=== PATIENT | male | born 1945 | race Two or more races ===

== ENCOUNTER 2025-03-08 11:18 | Inpatient (IN) | payer OTHER ==
[~2025-03-08] VITALS: Ht 170.2 cm; Wt 83.5 kg
[2025-03-08] MEDS ORDERED: IRBESARTAN-HCT1 EACH PO (11:44)
[2025-03-14] MEDS ORDERED: METRONIDAZOLE/SODIUM CHLORIDE 500 MG/100 ML PIGGYBACK IV ONE ×2 (11:45→18:10)
[2025-03-14] MEDS ORDERED: CEFTRIAXONE SODIUM 2,000 MG VIAL ONE (11:45)
[2025-03-14] MEDS ORDERED: 0.9 % SODIUM CHLORIDE 1,000 ML IV SCH (16:00)
[2025-03-14] MEDS ORDERED: MORPHINE SULFATE 4 MG/ML CARTRIDGE IV PRN (16:00)
[2025-03-14] MEDS ORDERED: OxyCODONE HCL 5 MG TABLET (ROXICODONE) PO PRN (16:00)
[2025-03-14] MEDS ORDERED: DEXTROSE 50 % IN WATER 0.5 G/ML VIAL IV PRN (16:00)
[2025-03-14] MEDS ORDERED: ONDANSETRON HCL 2 MG/ML VIAL IV PRN (16:00)
[2025-03-14] MEDS ORDERED: MORPHINE SULFATE 4 MG/ML VIAL IV ONE ×2 (16:55→17:30)
[2025-03-14] MEDS ORDERED: HYOSCYAMINE SULFATE 0.125 MG TAB.SUBL SL SCH (17:00)
[2025-03-14] MEDS ORDERED: METRONIDAZOLE/SODIUM CHLORIDE 500 MG/100 ML PIGGYBACK IV SCH (17:00)
[2025-03-14] MEDS ORDERED: GABAPENTIN 300 MG CAPSULE PO SCH (17:00)
[2025-03-14] MEDS ORDERED: POLYETHYLENE GLYCOL 3350 17 GM BLIST.PACK PO SCH (17:00)
[2025-03-14] MEDS ORDERED: ENALAPRILAT DIHYDRATE 1.25 MG/ML VIAL IV PRN (17:45)
[2025-03-14 18:32] LABS: BASO % 0.2 % (0.1-1.2); EOS # 0.09 (0.04-0.54); EOS % 0.4 % (0.7-7.0); HEMATOCRIT 36.5 % (40.1-51.0); HEMOGLOBIN 11.9 g/dL (13.7-17.5); LYMPH # 1.45 (1.18-3.74); LYMPH % 7.2 % (19.3-53.1); MEAN CORPUSCULAR HEMOGLOBIN 28.7 pg (25.6-32.2); MONO # 1.22 (0.24-0.82); NEUT # 17.32 (1.56-6.13); NEUT % 85.7 % (34.0-71.1); PLATELET COUNT 168 K/uL (163-369); RED BLOOD COUNT 4.14 M/uL (4.63-6.08); RED CELL DISTRIBUTION WIDTH 14.5 % (11.6-14.4)
[2025-03-14 18:52] LABS: ALBUMIN 3.5 gm/dL (3.4-5.0); CALCIUM 8.6 mg/dL (8.5-10.1); CREATININE SERUM 1.16 mg/dL (0.70-1.30); GFR 61.05; PHOSPHOROUS 3.4 mg/dL (2.5-4.9); POTASSIUM 4.37 mEq/L (3.5-5.1)
[2025-03-14 19:22] VITALS: BP 124/61; O2SAT 92
[2025-03-14] MEDS ORDERED: ACETAMINOPHEN 500 MG GEL..CAP PO SCH (20:00)
[2025-03-14] MEDS ORDERED: CELECOXIB 200 MG CAPSULE PO SCH (21:00)
[2025-03-14] MEDS ORDERED: DOXAZOSIN MESYLATE 2 MG TABLET PO SCH (21:00)
[2025-03-14] MEDS ORDERED: FAMOTIDINE/PF 20 MG/2 ML VIAL IV PUSH SCH (21:00)
[2025-03-15] VITALS: BP 126/67; O2SAT 96
[2025-03-15 06:47] LABS: BASO % 0.3 % (0.1-1.2); EOS # 0.03 (0.04-0.54); EOS % 0.2 % (0.7-7.0); HEMATOCRIT 36.8 % (40.1-51.0); HEMOGLOBIN 12.2 g/dL (13.7-17.5); LYMPH # 1.44 (1.18-3.74); LYMPH % 10.2 % (19.3-53.1); MONO # 1.22 (0.24-0.82); MONO % 8.6 % (4.7-12.5); NEUT # 11.36 (1.56-6.13); NEUT % 80.3 % (34.0-71.1); PLATELET COUNT 159 K/uL (163-369); RED BLOOD COUNT 4.21 M/uL (4.63-6.08); RED CELL DISTRIBUTION WIDTH 14.3 % (11.6-14.4)
[2025-03-15 07:42] LABS: ALBUMIN 3.3 gm/dL (3.4-5.0); CALCIUM 8.4 mg/dL (8.5-10.1); CREATININE SERUM 1.09 mg/dL (0.70-1.30); GFR 65.6; MAGNESIUM 2.1 mg/dL (1.8-2.4); POTASSIUM 4.28 mEq/L (3.5-5.1)
[2025-03-15 08:00] VITALS: BP 109/62; O2SAT 97
[2025-03-15] MEDS ORDERED: HYDROCHLOROTHIAZIDE 12.5 MG CAPSULE PO SCH (09:00)
[2025-03-15] MEDS ORDERED: IRBESARTAN 300 MG TABLET PO SCH (09:00)
[2025-03-15] MEDS ORDERED: AMLODIPINE BESYLATE 2.5 MG TABLET PO SCH (09:00)
[2025-03-15] MEDS ORDERED: AMLODIPINE BESYLATE 5 MG TABLET PO SCH (09:00)
[2025-03-15] MEDS ORDERED: ENOXAPARIN SODIUM 40 MG/0.4 ML SYRINGE SUBCUTANEO SCH (17:00)
[2025-03-16 01:31] VITALS: BP 109/61; O2SAT 96
[2025-03-16 08:17] LABS: BASO % 0.2 % (0.1-1.2); EOS # 0.35 (0.04-0.54); EOS % 2.7 % (0.7-7.0); HEMATOCRIT 38.7 % (40.1-51.0); HEMOGLOBIN 12.7 g/dL (13.7-17.5); LYMPH % 8.4 % (19.3-53.1); MEAN CORPUSCULAR HEMOGLOBIN 28.9 pg (25.6-32.2); MONO # 0.86 (0.24-0.82); MONO % 6.6 % (4.7-12.5); NEUT # 10.67 (1.56-6.13); NEUT % 81.9 % (34.0-71.1); PLATELET COUNT 155 K/uL (163-369); RED CELL DISTRIBUTION WIDTH 14.3 % (11.6-14.4)
[2025-03-16] MEDS ORDERED: TRAM1TAB98 PO (08:17)
[2025-03-16] MEDS ORDERED: PEPCID AC20 MG PO (08:17)
[2025-03-16 08:39] LABS: CALCIUM 8.3 mg/dL (8.5-10.1); CREATININE SERUM 1.06 mg/dL (0.70-1.30); GFR 67.74; MAGNESIUM 1.8 mg/dL (1.8-2.4); PHOSPHOROUS 2.1 mg/dL (2.5-4.9); POTASSIUM 4.22 mEq/L (3.5-5.1)
[2025-03-16] MEDS ORDERED: ENOXAPARIN SODIUM 40 MG/0.4 ML SYRINGE SUBCUTANEO SCH (09:00)
[2025-03-16 09:28] VITALS: BP 136/74; O2SAT 95
[2025-03-16] MEDS ORDERED: NAPH,MB-DB/K PH,MBDB 1 PKT PACKET PO NR (09:45)
== END 2025-03-16 14:46 | disposition home or self-care (01) | DRG 331 ==
LOC: SURH 03-14 07:00 → O/R 03-14 09:20 → SURH 03-14 11:45 → SURG 03-14 16:48
PROVIDERS: Internal Medicine Geriatric Medicine; ADMIT Surgery; ATTEND Surgery
PROC: 07BB4ZZ Excision of Mesenteric Lymphatic, Percutaneous Endoscopic Approach (ICD-10-PCS; 2025-03-14)
PROC: 0DBU4ZZ Excision of Omentum, Percutaneous Endoscopic Approach (ICD-10-PCS; 2025-03-14)
PROC: 0DBW4ZX Excision of Peritoneum, Percutaneous Endoscopic Approach, Diagnostic (ICD-10-PCS; 2025-03-14)
PROC: 0DTF4ZZ Resection of Right Large Intestine, Percutaneous Endoscopic Approach (ICD-10-PCS; principal; 2025-03-14 07:00)
DX: D12.3 Benign neoplasm of transverse colon (principal); I11.9 Hypertensive heart disease without heart failure; R59.0 Localized enlarged lymph nodes